=== PATIENT | female | born 1990 | race Asian ===

== ENCOUNTER 2017-05-14 18:46 | Emergency (ER) | payer OTHER ==
[2017-05-14 19:38] VITALS: BP 141/89
--- NOTE | 2017-05-14 22:17 | UC ---
chandni Quezada Timothy, scribed for Kacie Vaca DO on 05/14/17 at 1953 . Back Pain HPI - HPI Summary HPI Summary: Juanis Mathew is a 26 yo female presenting to [facility] with 6/10 left upper back pain radiating into her neck without any known trauma for the past 2 days. There are no aggravating or alleviating factors. Pt notes she is on ABx for UTI currently. She also notes she has the urge to cough as of this afternoon, and experienced some tingling last night. She denies any radiation of pain into her arm or shoulder. She denies fever, CP, SOB, N/V, sore throat, ear ache, rashes, numbness, or any other Sx. She denies any PMHx. Her LNMP was one week ago. - History of Current Complaint Chief Complaint: UCBackPain Stated Complaint: BACK AND NECK PAIN Time Seen by Provider: 05/14/17 19:47 Hx Obtained From: Patient Hx Last Menstrual Period: 1 WEEK AGO ?: No Onset/Duration: Sudden Onset, Lasting Days, Still Present Timing: Constant Severity Initially: Moderate Severity Currently: Moderate Pain Intensity: 6 Pain Scale Used: 0-10 Numeric Back Pain: Is Discrete @ - upper back, Radiates To - neck Character: Aching Aggravating: Nothing Alleviating: Nothing Associated Signs And Symptoms: Negative: Swelling, Redness, Bruising, Fever, Weakness, Numbness, Tingling, Abdominal Pain, Flank Pain - Allergies/Home Medications Allergies/Adverse Reactions: Allergies Allergy/AdvReac Type Severity Reaction Status Date / Time No Known Allergies Allergy Verified 05/14/17 19:38 Home Medications: Home Medications Naproxen TAB* [Naprosyn 250 mg TAB*] 500 mg PO PRN 05/14/17 [History] Sulfamethox/Trimethoprim DS* [Bactrim DS 800/160 TAB*] 1 tab PO BID 05/14/17 [ History Confirmed 05/14/17] PMH/Surg Hx/FS Hx/Imm Hx Previously Healthy: Yes Other History Of: Negative For: HIV, Hepatitis B, Hepatitis C, Anticoagulant Therapy - Surgical History Surgical History: None - Family History Known Family History: Positive: Cardiac Disease, Hypertension, Diabetes - Social History Occupation: Employed Full-time Alcohol Use: Occasionally Substance Use Type: None Smoking Status (MU): Never Smoked Tobacco Review of Systems Constitutional: Negative Skin: Negative Eyes: Negative ENT: Negative Respiratory: Cough - mild occ Cardiovascular: Negative Gastrointestinal: Negative Genitourinary: Negative Motor: Negative Neurovascular: Negative Musculoskeletal: Other: - upper back pain radiating to bas of the neckneck Neurological: Negative Psychological: Negative All Other Systems Reviewed And Are Negative: Yes Physical Exam Triage Information Reviewed: Yes Appearance: Well-Appearing, No Pain Distress, Well-Nourished Vital Signs: Initial Vital Signs Temp 98.7 F 05/14/17 19:35 Pulse 101 05/14/17 19:35 Resp 16 05/14/17 19:35 BP 141/89 05/14/17 19:35 Pulse Ox 100 05/14/17 19:35 Vital Signs Reviewed: Yes Eyes: Positive: Conjunctiva Clear. Negative: Discharge ENT: Positive: Hearing grossly normal. Negative: Muffled/hoarse voice Neck: Positive: Supple, Nontender Respiratory: Positive: Lungs clear, Normal breath sounds, No respiratory distress, No accessory muscle use Cardiovascular: Positive: RRR, No Murmur Musculoskeletal: Positive: Other: - paraspinal tenderness left upper thoracic, flattening of thoracic curve, head forward posture Neurological: Positive: Alert, Muscle Tone Normal, Other: - strength sensation and reflexes intact bl Psychological Exam: Normal Psychological: Positive: Age Appropriate Behavior Skin Exam: Normal Skin: Positive: Other - warm, dry, normal color. Negative: rashes Back Pain Course/Dx - Course Course Of Treatment: Kinga Mathew is a 26 yo female presenting to [facility] with 6/10 left upper back pain radaiitng into her neck for the past 2 days without any known trauma. Pt medication list reviewed this visit. Pt BP noted at 141/89. After clinical examination she will be discharged home with appropriate instructions and follow up. - Differential Dx/Diagnosis Differential Diagnosis/HQI/PQRI: Arthritis, Strain, Sprain Provider Diagnoses: upper back strain Discharge - Discharge Plan Condition: Stable Disposition: HOME Prescriptions: Cyclobenzaprine TAB* [Flexeril TAB*] 10 mg PO TID PRN #30 tab PRN Reason: Pain traMADol TAB* [Ultram*] 50 mg PO Q8H PRN #14 tab MDD 3 TABS PRN Reason: Pain Patient Education Materials: Thoracic Back Strain (ED) Referrals: Adonis Chapman DO [Doctor of Osteopathy] - 05/19/17 (Follow up as scheduled) Additional Instructions: YOU HAVE BEEN TAKING NAPROXEN FOR FOR LOW BACK PAIN SECONDARY TO UTI. YOU ARE NO LONGER HAVING THAT PAIN AND THE UTI APPEARS TO BE RESOLVING. SINCE THE NAPROXEN DOES NOT SEEM TO BE HELPING, YOU CAN STOP IT AND TRY THE FOLLOWING PAIN MEDS. MUSCLE RELAXERS: Muscle relaxing medications are usually prescribed for acute muscle spasm or injury to the neck and back. They are often combined with antiinflammatory pain medication for increased relief. You may stop the muscle relaxer when the pain and stiffness have improved. Start the medication again if spasms recur. Muscle relaxers may cause drowsiness, especially with the first dose. Do not operate machinery or drive while under the effects of the medication. Most muscle relaxers last up to 24 hours. Do not combine the medication with alcohol. ULTRAM (tramadol hydrochloride): Ultram is an excellent drug for pain relief. It is not a narcotic, but it works in a similar way. Ultram can take up to two hours for full effect. Although not addicting, Ultram is best avoided in patients with a history of drug abuse. Ultram should not be used with alcohol, sleeping pills, or narcotics. If you're prone to seizures, Ultram can make you more likely to have a seizure. Ultram can be hazardous when combined with MAO-inhibitor antidepressants (such as Nardil or Parnate). Be sure your doctor is aware of all medicines you are taking. Persons with severe liver or kidney disease should increase the time between doses of Ultram. Discuss this with your doctor if you're uncertain. Side effects of Ultram can include dizziness, nausea, constipation, sleepiness, and itching. (These side effects are also seen with narcotic pain medicines.) Please call your doctor if you have other disturbing effects. IF YOU DO NOT IMPROVE IN 1-2 WEEKS, YOU WANT TO REQUEST A REFERRAL TO PHYSICAL THERAPY FROM YOUR PCP. YOU WOULD BENEFIT FROM BODY WORK SUCH A CHIROPRACTIC, MASSAGE, ACCUPUNCTURE OR OSTEOPATHY. WE RECOMMEND THAT YOU FIND AN OSTEOPATHIC PHYSICIAN WITH EXPERTISE IN MYOFACIAL, LYMPHATIC, VISCERAL AND INTEROSSEOUS WORK Please follow up with your primary care physician regarding your visit to urgent care today. Return to urgent care or the emergency department with any new or worsening symptoms. The documentation as recorded by the chandni daniels Timothy accurately reflects the service I personally performed and the decisions made by , Kacie Vaca DO.
== END 2017-05-14 20:32 | disposition home or self-care (01) ==
LOC: UCEAST 18:46
DX: S29.012A Strain of muscle and tendon of back wall of thorax, initial encounter (principal); N39.0 Urinary tract infection, site not specified; Z79.2 Long term (current) use of antibiotics
CPT/HCPCS: 99212; G0463

== ENCOUNTER 2017-12-03 23:55 | Emergency (ER) | payer OTHER ==
--- OUTSIDE RECORDS SUMMARY | 2017-12-04 00:12 | XMS REPORT ---
:1990 External Reference #:[id number] Author Organization [facility] Address [address] [place] [address] Phone [phone] Care Team Providers Name Role Phone HCP given Primary Care Physician Unavailable Payers Type Date Identification Numbers Payment Provider Subscriber Commercial Effective: Policy Number: [id number] Pomco Kinga Mathew 2016 Expires: 2017 PayID: [id number] [address] [place] [address] Medigap Part B Effective: 2017 Policy Number: [id number] Umr/Pomco Kinga Mathew PayID: [id number] [address] [address] [place] [address] Problems Date Description Provider Status Onset: 05/26/2011 Dysfunctional uterine bleeding Abilio Hughes Active Onset: 11/23/2017 Tension-type headache Adonis Chapman D.O. Active Onset: 11/23/2017 Mixed hyperlipidemia Adonis Chapman D.O. Active Family History Date Family Member(s) Problem(s) Comments General Some FMHx (extended) of BR CA, pt does not know who exactly or their ages at onset Father Migraine with light sensitivity Father Allergies Father Asthma Father Obesity Father Diabetes, NOS Mother Migraine visual type Onset: (age 52 Mother Hyperthyroidism ab pos Years) Mother Hypertension First Brother ADHD First Brother Obesity Maternal Grandmother Hyperthyroidism at a young age, thyroidectomy in her 30's. 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 Abuse No history of abuse Hobbies Reading Cigarette Use 07/02/2015 Denies Cigarette Use ETOH Use Occassional Alcohol Smoking Non Smoker Exercise Type/Frequency Does aerobics daily zymba and pilates Sun Exposure moderate amount of sun exposure Sun Exposure Uses sunscreen Seat Belt/Car Seat always uses seat belt Bike Helmet Always Guns in Home No Smoke Alarms Yes smoke alarm Recent Travel There has not been recent travel abroad Currently Active 07/02/2015 Has never engaged in sexual activity Father's Occupation News Clipping Cutter Mother's Occupation Photogrammetrist [employer] Mill Inspector No Daycare Needed Allergies, Adverse Reactions, Alerts Date Description Reaction Status Severity Comments 05/29/2006 NKDA active Medications Medication Date Status Form Strength Qnty SIG Indications Ordering Provider Simvastatin 11/23 Active Tablets 20mg 90tab 1 [facility] Adonis, D.O. Magox 400 11/23 Active Tablets 400(241.3 180ta 2 tablets G44.209 [facility], mg) mg bs every night Adonis, at bedtime D.O. as directed Centrum Women 11/22 Active Tablets 1 po daily Flonase Allergy 05/19 Active Suspension 50mcg/Act 47.40 2 sprays J30.9 [facility], 0ml twice a day Adonis, until D.O. better. Fluocinonide 10/31 Active Ointment 0.05% Apply Topically To Hands Two Times A Day Previfem 08/29 Active Tablets 0.25-35mg 3pkts 1 ta b by Z30.011 -mcg mouth every A. day Omid Dawson Atorvastatin 09/09 Hx Tablets 20mg 90tab 1 tablets Sopchak, s by mouth Adonis, - daily for D.O. 11/23 of heart attack and stroke. Macrobid 06/01 Hx Capsules 100mg 14cap 1 cap bid x N39.0 Silcoff, s 7 days Anthony Elise M.D. 06/08 Cyclobenzaprine 05/14 Hx Tablets 10mg 1 tab by Unknown HCL mouth three - times a day 07/15 as needed for pain Tramadol HCL 05/14 Hx Tablets 50mg 1-2 by Unknown /2017 mouth every - 8 hours as 07/15 needed for pain Sulfamethoxazole 05/09 Hx Tablets 800-160mg 14tab 1 tab [facility]Trimethoprim s mouth twice EMMA Blank - a day x7 Naproxen 05/09 Hx Tablets 500mg 60tab 1 tab twice M54.5 Hekrosalina, /2016 s a day with EMMA Blank - food as 05/18 needed for pain Sprintec 28 10/06 Hx Tablets 0.25-35mg 3pkts 1 po qd V25.01 Silcocameron, -mcg Arik - M.D. 08/29 Fluconazole 06/05 Hx Tablets 150mg 2tabs 1 tab po q 110.5 Silcocameron, week then 1 Arik, - tab 8 days M.D. 05/23 Triamcinolone/[place]y 06/05 Hx Cream 057709-3. 60g Apply to 110.5 co, 1Unit/GM- affected Arik - % areas tid M.D. 06/16 for up to weeks Cephalexin 04/24 Hx Capsules 250mg 28cap 1 PO qid 680.9 s A. - Eunice, 05/01.D. /2006 Fluocinonide 04/24 Hx Cream 0.05% 15gm Apply To 680.9 Affected A. - Area tid Eunice, 04/29 For Five M.D. /2006 Days Ibuprofen 05/29 Hx Caplets 800mg 100ca 1 tid to 625.3 ps qid for A. - period edi, 06/16 M.D. Necon 00 Hx Tablets 0.5/0.75/ 3pkts 1 tab po qd 626.6 Silco, 1-35 Arik - mg-roseline M.D. 10/06 V25.01 Medications Administered in Office Medication Date Status Form Strength Qnty SIG Indications Ordering Provider TB Intradermal Administered Injection Ty Loza 009 Omid Dawson Immunizations CPT Code Status Date Vaccine Lot # [id number] Given 08/07/2017 Influenza Virus Vaccine, Quadrivalent, Split, Preservative Free 93540 Given 09/04/2016 Td Immunization [id number] 69248 Given 07/31/2016 Influenza Virus Vaccine, Quadrivalent, [place], [place] Use [address] Given 07/02/2015 Flu, Split Virus 3Yrs 31384 Given 12/10/2012 Hep A, Adult [id number] 31784 Given 06/16/2012 Hep A, Adult [id number] 82254 Given 10/16/2011 Flu, Split Virus 3Yrs [id number] 99944 Given 11/13/2008 Gardasil HPV vaccine [id number] 46919 Given 08/19/2008 Flu, Split Virus 3Yrs [id number] 33801 Given 06/26/2008 Gardasil HPV vaccine 28010 Given 04/25/2008 Menactra Menningitis Vaccine [id number] 11070 Given 04/25/2008 Gardasil HPV vaccine [id number] 06140 Given 05/29/2006 Varicella (Chicken Pox) Immunization [id number] 53913 Given 05/29/2006 Adacel or Boostrix, TDaP [id number] 90697 Given 01/29/2004 Td Immunization 47387 Given 03/28/1997 DTP Immunization 24257 Given 02/06/1997 Hep B Immunization, Ped/Adolescent To 11 Yrs 69316 Given 08/23/1996 Hep B Immunization, Ped/Adolescent To 11 Yrs 02028 Given 04/15/1996 Hep B Immunization, Ped/Adolescent To 11 Yrs 06500 Given 04/14/1996 Poliomyelitis Immunization 54104 Given 04/14/1996 MMR Virus Immunization 87002 Given 04/14/1996 DTP Immunization 91822 Given 03/28/1992 Hib 4 Dose, Acthib 79034 Given 03/28/1992 MMR Virus Immunization 95401 Given 03/28/1992 Poliomyelitis Immunization 79601 Given 06/29/1991 DTP Immunization 86012 Given 06/29/1991 Hib 4 Dose, Acthib 74316 Given 04/27/1991 Poliomyelitis Immunization 49519 Given 04/27/1991 DTP Immunization 41694 Given 04/27/1991 Hib 4 Dose, Acthib 82346 Given 02/23/1991 Poliomyelitis Immunization 58372 Given 02/23/1991 DTP Immunization 21774 Given 02/23/1991 Hib 4 Dose, Acthib Vital Signs Date Vital Result Comment 11/23/2017 BP Systolic 124 mmHg BP Diastolic 74 mmHg Weight 138.00 lb 09/07/2017 BP Systolic 120 mmHg BP Diastolic 80 mmHg Height 59.50 inches 4'11.50" Weight 135.00 lb BMI (Body Mass Index) 26.8 kg/m2 Last Menstrual Period [id number] 06/08/2017 Body Temperature 98.5 F 06/01/2017 BP Systolic 112 mmHg BP Diastolic 70 mmHg Body Temperature 98.2 F Weight 130.00 lb 05/19/2017 BP Systolic 122 mmHg BP Diastolic 64 mmHg Weight 130.00 lb 05/09/2017 BP Systolic 118 mmHg BP Diastolic 60 mmHg Weight 128.00 lb 04/10/2017 BP Systolic 120 mmHg BP Diastolic 58 mmHg Height 59.5 inches 4'11.50" Weight 133.00 lb BMI (Body Mass Index) 26.4 kg/m2 09/04/2016 BP Systolic 106 mmHg BP Diastolic 82 mmHg Height 59.5 inches 4'11.50" Weight 127.00 lb BMI (Body Mass Index) 25.2 kg/m2 07/02/2015 BP Systolic 120 mmHg BP Diastolic 82 mmHg Heart Rate 80 /min Height 59.5 inches 4'11.50" Weight 121.00 lb BMI (Body Mass Index) 24.0 kg/m2 06/29/2014 BP Systolic 136 mmHg k BP Diastolic 89 mmHg k Heart Rate 70 /min Height 59.5 inches 4'11.50" Weight 129.00 lb BMI (Body Mass Index) 25.6 kg/m2 Last Menstrual Period [id number] 06/22/2013 BP Systolic 119 mmHg BP Diastolic 81 mmHg Heart Rate 90 /min Height 59.50 inches 4'11.50" Weight 125.00 lb BMI (Body Mass Index) 24.8 kg/m2 Last Menstrual Period [id number] 10/06/2012 BP Systolic 134 mmHg BP Diastolic 86 mmHg BP Systolic Recheck 126 mmHg BP Diastolic Recheck 96 mmHg Heart Rate 93 /min Weight 123.00 lb Last Menstrual Period 0 06/16/2012 BP Systolic 126 mmHg BP Diastolic 92 mmHg BP Systolic Recheck 122 mmHg BP Diastolic Recheck 84 mmHg Heart Rate 111 /min Height 59.50 inches 4'11.50" Weight 124.00 lb BMI (Body Mass Index) 24.6 kg/m2 Last Menstrual Period [id number] 05/26/2011 BP Systolic 130 mmHg BP Diastolic 90 mmHg BP Systolic Recheck 126 mmHg BP Diastolic Recheck 91 mmHg Height 59.50 inches 4'11.50" Weight 132.00 lb BMI (Body Mass Index) 26.2 kg/m2 06/05/2010 BP Systolic 146 mmHg BP Diastolic 86 mmHg BP Systolic Recheck 118 mmHg Pulse 101 BP Diastolic Recheck 93 mmHg Pulse 101 Heart Rate 93 /min Height 59.5 inches 4'11.50" Weight 133.00 lb BMI (Body Mass Index) 26.4 kg/m2 05/14/2009 BP Systolic 110 mmHg BP Diastolic 84 mmHg Weight 139.00 lb Last Menstrual Period [id number] 04/27/2009 BP Systolic 122 mmHg BP Diastolic 88 mmHg Heart Rate 80 /min Respiratory Rate 16 /min Height 59.5 inches 4'11.50" Weight 136.00 lb BMI (Body Mass Index) 27.0 kg/m2 06/26/2008 BP Systolic 130 mmHg BP Diastolic 90 mmHg BP Systolic Recheck 120 mmHg BP Diastolic Recheck 80 mmHg Heart Rate 70 /min Respiratory Rate 16 /min Height 58.9 inches 4'10.90" Weight 140.00 lb BMI (Body Mass Index) 28.4 kg/m2 Last Menstrual Period 0 04/25/2008 BP Systolic 130 mmHg BP Diastolic 90 mmHg BP Systolic Recheck 122 mmHg BP Diastolic Recheck 84 mmHg Heart Rate 80 /min Respiratory Rate 16 /min Height 59 inches 4'11" Weight 135.00 lb BMI (Body Mass Index) 27.3 kg/m2 04/24/2007 BP Systolic 122 mmHg BP Diastolic 80 mmHg Height 59 inches 4'11" Weight 129.00 lb BMI (Body Mass Index) 26.1 kg/m2 05/29/2006 BP Systolic 96 mmHg BP Diastolic 74 mmHg Heart Rate 80 /min Respiratory Rate 16 /min Height 58.75 inches 4'10.75" Weight 121.00 lb BMI (Body Mass Index) 24.6 kg/m2 05/29/2004 BP Systolic 110 mmHg BP Diastolic 70 mmHg Height 58.3 inches 4'10.30" Weight 113.00 lb BMI (Body Mass Index) 23.4 kg/m2 Results Test Date Test Result H/L Range Note Lipid Profile (Trig/Chol/HDL) 11/19/2017 Triglycerides 258 mg/dL 1 Cholesterol 175 mg/dL 2 HDL Cholesterol 72.1 mg/dL 3 LDL Cholesterol 51 mg/dL 4 Comp Metabolic Panel 11/19/2017 Sodium 136 mmol/L 133-145 Potassium 4.6 mmol/L 3.5-5.0 Chloride 101 mmol/L 101-111 Co2 Carbon Dioxide 26 mmol/L 22-32 Anion Gap 9 mmol/L 2-11 Glucose 82 mg/dL 70-100 Blood Urea Nitrogen 7 mg/dL 6-24 Creatinine 0.61 mg/dL 0.51-0.95 BUN/Creatinine Ratio 11.5 8-20 Calcium 9.4 mg/dL 8.6-10.3 Total Protein 7.1 g/dL 6.4-8.9 Albumin 4.1 g/dL 3.2-5.2 Globulin 3.0 g/dL 2-4 Albumin/Globulin Ratio 1.4 1-3 Total Bilirubin 0.50 mg/dL 0.2-1.0 Alkaline Phosphatase 70 U/L 34-104 Alt 151 U/L High 7-52 Ast 96 U/L High 13-39 Egfr Non- 118.6 >60 Egfr 152.5 >60 5 Laboratory test finding 09/08/2017 LDL Cholesterol Direct 117 mg/dL 6 Lipid Profile (Trig/Chol/HDL) 09/08/2017 Triglycerides 467 mg/dL 7 Cholesterol 259 mg/dL 8 HDL Cholesterol 71.8 mg/dL 9 LDL Cholesterol (SEE NOTE) mg/dL 10 Basic Metabolic Panel 09/08/2017 Sodium 134 mmol/L 133-145 Potassium 4.2 mmol/L 3.5-5.0 Chloride 97 mmol/L Low 101-111 Co2 Carbon Dioxide 26 mmol/L 22-32 Anion Gap 11 mmol/L 2-11 Glucose 82 mg/dL 70-100 Blood Urea Nitrogen 10 mg/dL 6-24 Creatinine 0.56 mg/dL 0.51-0.95 BUN/Creatinine Ratio 17.9 8-20 Calcium 9.9 mg/dL 8.6-10.3 Egfr Non- 130.9 >60 Egfr 168.3 >60 11 HIV 1/2 AB Evaluation 09/08/2017 HIV 1 2 Antibody Nonreactive Nonreactive 12 Urine Micro Inhouse 09/07/2017 Ua WBC - 13 Ua RBC - 13 Ua Casts - 13 Ua Epi - 13 Ua Other - 13 Ua Glucose - 13 Ua Bilirubin - 13 Ua Ketones - 13 Ua Specific Arnegard 1.005 13 Ua Blood - 13 Ua PH 6.0 13 Ua Protein - 13 Ua Urobilinogen - 13 Ua Nitrite - 13 Ua Leukocytes - 13 Culture Urine Inhouse 09/07/2017 Colonies no growth 13 Ua Inhouse 06/08/2017 Ua Glucose - 14 Ua Bilirubin - 14 Ua Ketones - 14 Ua Specific Arnegard 1.010 14 Ua Blood lg 14 Ua PH 6.0 14 Ua Protein - 14 Ua Urobilinogen - 14 Ua Nitrite - 14 Ua Leukocytes - 14 Culture Urine Inhouse 06/08/2017 Colonies 07/21 14 Order 06/08/2017 Ua inhouse <pending> 15 Urine Culture, inhouse 07/21 15 Urine Micro Inhouse 06/01/2017 Ua WBC 7 16 Ua RBC 3 16 Ua Casts - 16 Ua Epi many 16 Ua Other - 16 Ua Glucose - 16 Ua Bilirubin - 16 Ua Ketones - 16 Ua Specific Arnegard 1.010 16 Ua Blood - 16 Ua PH 6.0 16 Ua Protein - 16 Ua Urobilinogen - 16 Ua Nitrite - 16 Ua Leukocytes sm 16 Laboratory test finding 06/01/2017 Urine Culture And SEE RESULT BELOW 17 Sensitivities Culture Urine Inhouse 05/09/2017 Colonies 07/20 18 Ua Inhouse 05/09/2017 Ua Glucose - 18 Ua Bilirubin - 18 Ua Ketones - 18 Ua Specific Arnegard 1.005 18 Ua Blood 3+ (menses) 18 Ua PH 5.0 18 Ua Protein - 18 Ua Urobilinogen - 18 Ua Nitrite - 18 Ua Leukocytes 2+ 18 Laboratory test finding 04/13/2017 TSH (Thyroid Stim Horm) 1.71 mcIU/mL 0.34-5.60 Comp Metabolic Panel 04/13/2017 Sodium 137 mmol/L 133-145 Potassium 4.4 mmol/L 3.5-5.0 Chloride 102 mmol/L 101-111 Co2 Carbon Dioxide 26 mmol/L 22-32 Anion Gap 9 mmol/L 2-11 Glucose 86 mg/dL 70-100 Blood Urea Nitrogen 10 mg/dL 6-24 Creatinine 0.66 mg/dL 0.51-0.95 BUN/Creatinine Ratio 15.2 8-20 Calcium 9.9 mg/dL 8.6-10.3 Total Protein 7.9 g/dL 6.4-8.9 Albumin 4.7 g/dL 3.2-5.2 Globulin 3.2 g/dL 2-4 Albumin/Globulin Ratio 1.5 1-3 Total Bilirubin 0.40 mg/dL 0.2-1.0 Alkaline Phosphatase 60 U/L 34-104 Alt 21 U/L 7-52 Ast 18 U/L 13-39 Egfr Non- 108.3 >60 Egfr 139.2 >60 19 CBC Auto Diff 04/13/2017 White Blood Count 8.0 10^3/uL 3.5-10.8 Red Blood Count 5.32 10^6/uL 4.0-5.4 Hemoglobin 15.9 g/dL 12.0-16.0 Hematocrit 46 % 35-47 Mean Corpuscular Volume 87 fL 80-97 Mean Corpuscular Hemoglobin 30 pg 27-31 Mean Corpuscular HGB Conc 34 g/dL 31-36 Red Cell Distribution Width 13 % 10.5-15 Platelet Count 308 10^3/uL 150-450 Mean Platelet Volume 7 um3 Low 7.4-10.4 Abs Neutrophils 5.1 10^3/uL 1.5-7.7 Abs Lymphocytes 1.9 10^3/uL 1.0-4.8 Abs Monocytes 0.5 10^3/uL 0-0.8 Abs Eosinophils 0.4 10^3/uL 0-0.6 Abs Basophils 0.1 10^3/uL 0-0.2 Abs Nucleated RBC 0.01 10^3/uL Granulocyte % 64.2 % 38-83 Lymphocyte % 23.6 % Low 25-47 Monocyte % 5.9 % 1-9 Eosinophil % 5.4 % 0-6 Basophil % 0.9 % 0-2 Nucleated Red Blood Cells % 0.1 Thyroid Autoantibodies Profile 04/13/2017 Thyroperoxidase AB 0.27 IU/mL & lt;9 Thyroglobulin AB <1.8 IU/mL <4.0 20 Laboratory test finding 09/04/2016 Cytology SEE RESULT BELOW 21 Laboratory test finding 06/22/2013 Hemoglobin 12.0 Glucose Quantitative 107 Laboratory test finding 06/22/2013 TSH (Thyroid Stimulating 2.32 miu/mL 0.34-5.60 Horm) Ua Inhouse 06/22/2013 Ua Glucose - Ua Bilirubin - Ua Ketones - Ua Specific Arnegard 1.015 Ua Blood - Ua PH 5.0 Ua Protein - Ua Urobilinogen - Ua Nitrite - Ua Leukocytes - Laboratory test finding 10/06/2012 Glucose Quantitative 84 Ua Inhouse 10/06/2012 Ua Glucose - Ua Bilirubin - Ua Ketones - Ua Specific Arnegard 1.020 Ua Blood - Ua PH 5.0 Ua Protein - Ua Urobilinogen - Ua Nitrite - Ua Leukocytes - Laboratory test finding 06/16/2012 TSH 1.34 MIU/ML 0.34-5.60 CBC Auto Diff 06/16/2012 White Blood Count 7.2 CUMM 4.8-10.8 Red Cell Count 4.98 CUMM 4.2-5.4 Hemoglobin 15.3 g/dL 12.0-16.0 Hematocrit 43 % 35-47 Mean Corpuscular Volume 87 um3 79-97 Mean Corpuscular Hemoglob 31 pg 27-31 Mean Corpuscular HGB Cone 35 g/dL 32-36 Redcell Distribution WDTH 12 % 10.5-15 Platelet Count 356 CUMM 150-450 Mean Platelet Volume 7.4 um3 7.4-10.4 Gran % 59.0 % 38-83 Lymph % 28.8 % 20-45 Mononuclear % 8.7 % 1-9 Eosinophil % 3.1 % 0-6 Basophil % 0.4 % 0-2 Abs Lymphs 2.1 1.0-4.8 Abs Mononuclear 0.6 0-0.8 Absolute Neutrophil Count 4.3 1.5-7.7 Abs Eosinophils 0.2 0-0.6 Abs Basophils 0 0-0.2 Laboratory test finding 04/27/2009 Prolactin 8.71 NG/ML 1.0-25.0 TSH 2.27 MIU/ML 0.34-5.60 Comp Metabolic Panel 04/27/2009 Sodium 137 mmol/L 135-145 Potassium 3.9 mmol/L 3.5-5.0 Chloride 102 mmol/L 101-111 Co2 (Carbon Dioxide) 27.0 mmol/L 22-32 Anion Gap 8.0 mmol/L 2-11 22 Glucose 111 mg/dL High 70-100 23 BUN 9 mg/dL 6-24 Creatinine 0.60 mg/dL 0.50-1.40 One Over Creatinine 1.60 BUN/Creatinine Ratio 15.0 8-20 Calcium 9.9 mg/dL 8.1-9.9 24 Total Protein 7.1 GM/DL 6.2-8.1 Albumin 4.6 GM/DL 3.6-5.4 Globulin 2.5 GM/DL 2-4 Albumin/Globulin Ratio 1.8 1-3 Bilirubin Total 0.9 mg/dL 0.4-1.5 25 Alkaline Phosphatase 64 U/L 40-122 Alt (SGPT) 77 U/L High 14-54 Ast (Sgot) 46 U/L High 12-42 eGFR Non- 138.4 > 60 eGFR 167.5 > 60 26 CBC With Electronic Diff 04/27/2009 White Blood Count 6.5 CUMM 4.8-10.8 Red Cell Count 5.19 CUMM 4.2-5.4 Hemoglobin 15.1 g/dL 12.0-16.0 Hematocrit 44 % 35-47 Mean Corpuscular Volume 84 um3 79-97 Mean Corpuscular Hemoglob 29 pg 27-31 Mean Corpuscular HGB Cone 35 g/dL 32-36 Redcell Distribution WDTH 13 % 10.5-15 Platelet Count 299 CUMM 150-450 Mean Platelet Volume 7.2 um3 Low 7.4-10.4 Gran % 57.3 % 38-83 Lymph % 31.6 % 25-47 Mononuclear % 6.6 % 1-9 Eosinophil % 4.0 % 0-6 Basophil % 0.5 % 0-2 Abs Lymphs 2.0 1.0-4.8 Abs Mononuclear 0.4 0-0.8 Absolute Neutrophil Count 3.7 1.5-7.7 Abs Eosinophils 0.3 0-0.6 Abs Basophils 0 0-0.2 Laboratory test finding 04/27/2009 FSH 6.74 MIU/ML 27 Lutenizing Hormone 10.28 MIU/ML 28 Urine Micro Inhouse 04/27/2009 Urine Microscopic Inhouse many epi Ua Inhouse 04/27/2009 Ua Glucose - Ua Bilirubin - Ua Ketones - Ua Specific Arnegard 1.020 Ua Blood - Ua PH 5.0 Ua Protein - Ua Urobilinogen - Ua Nitrite - Ua Leukocytes - Ua Inhouse 06/01/2006 Ua Glucose NEG Ua Bilirubin NEG Ua Ketones NEG Ua Specific Arnegard 1.015 Ua Blood NEG Ua PH 5.0 Ua Protein NEG Ua Urobilinogen NEG Ua Nitrite NEG Ua Leukocytes NEG Laboratory test finding 06/01/2006 Hemoglobin 13.9 Urine Microscopic Inhouse OCC EPI CBC With Electronic Diff 05/29/2004 White Blood Count 8.5 CUMM 4.8-10.8 Abs Basophils 0.1 0-0.2 Abs Eosinophils 0.4 0-0.6 Abs Grans 4.3 1.5-7.7 Abs Lymphs 3.1 1.0-4.8 Abs Mononuclear 0.6 0-0.8 Basophil % 0.7 % 0-2 Hematocrit 45 % 35-45 Hemoglobin 15.6 g/dL High 11.5-15.5 Eosinophil % 5.2 % 0-6 Gran % 50.7 % 38-83 Lymph % 36.7 % 20-45 Mean Corpuscular HGB Cone 35 g/dL 32-36 Mean Corpuscular Hemoglob 29 pg 27-31 Mean Corpuscular Volume 85 um3 79-97 Mean Platelet Volume 8.2 um3 7.4-10.4 Mononuclear % 6.7 % 1-9 Platelet Count 336 CUMM 150-450 Red Cell Count 5.32 CUMM High 4.0-5.2 Redcell Distribution WDTH 13 % 10.5-15 Laboratory test finding 05/29/2004 Transferrin 282 mg/dL 200-400 29 Laboratory test finding 05/29/2004 Ferritin 36 NG/ML 11.0-307 Iron & Iron Binding Capacity 05/29/2004 Iron Total 111 g/dL 28-170 Total Iron Binding Capacity 415 g/dL 250-450 % Iron Saturation 27 % 15-55 Unsaturated Iron Binding 304 g/dL Comp Metabolic Panel 05/29/2004 Anion Gap 7.0 mmol/L 2-11 30 Albumin/Globulin Ratio 1.4 1-3 Albumin 4.6 GM/DL 3.6-5.4 Alkaline Phosphatase 117 U/L Low 130-390 Alt (SGPT) 22 U/L 14-54 Ast (Sgot) 22 U/L 12-42 BUN 8 mg/dL 6-24 Calcium 10.3 mg/dL High 8.7-10.2 Chloride 104 mmol/L 101-111 Co2 (Carbon Dioxide) 27.0 mmol/L 22-32 Creatinine 0.7 mg/dL 0.5-1.4 Globulin 3.4 GM/DL 2-4 Glucose 92 mg/dL 70-105 Potassium 4.5 mmol/L 3.6-5.2 Sodium 138 mmol/L 135-145 Bilirubin Total 0.7 mg/dL 0.4-1.5 Total Protein 8.0 GM/DL 6.2-8.1 BUN/Creatinine Ratio 11.4 8-20 1 Desirable: <150 Borderline High: 150-199 High: 200-499 Very High: >500 2 Desirable: <200 Borderline High: 200-239 High: >239 3 Low: <40 Desirable: 40-60 High: >60 4 Desirable: <100 Near Optimal: 100-129 Borderline High: 130-159 High: 160-189 Very High: >189 5 Because ethnic data is not always readily available, this report includes an eGFR for both -Americans and non- Americans. The National Kidney Disease Education Program (NKDEP) does not endorse the use of the MDRD equation for patients that are not between the ages of 18 and 70, are , have extremes of body size, muscle mass, or nutritional status, or are non- or non-. According to the National Kidney Foundation, irrespective of diagnosis, the stage of the disease is based on the level of kidney function: Stage Description GFR(mL/min/1.73 m(2)) 1 Kidney damage with normal or decreased GFR 90 2 Kidney damage with mild decrease in GFR 60-89 3 Moderate decrease in GFR 30-59 4 Severe decrease in GFR 15-29 5 Kidney failure <15 (or dialysis) 6 Desirable: <100 Near Optimal: 100-129 Borderline High: 130-159 High: 160-189 Very High: >189 7 Desirable: <150 Borderline High: 150-199 High: 200-499 Very High: >500 8 Desirable: <200 Borderline High: 200-239 High: >239 9 Low: <40 Desirable: 40-60 High: >60 10 Unable to calculate LDL as triglyceride is > 400 11 Because ethnic data is not always readily available, this report includes an eGFR for both -Americans and non- Americans. The National Kidney Disease Education Program (NKDEP) does not endorse the use of the MDRD equation for patients that are not between the ages of 18 and 70, are , have extremes of body size, muscle mass, or nutritional status, or are non- or non-. According to the National Kidney Foundation, irrespective of diagnosis, the stage of the disease is based on the level of kidney function: Stage Description GFR(mL/min/1.73 m(2)) 1 Kidney damage with normal or decreased GFR 90 2 Kidney damage with mild decrease in GFR 60-89 3 Moderate decrease in GFR 30-59 4 Severe decrease in GFR 15-29 5 Kidney failure <15 (or dialysis) 12 It is recognized that currently available assays for the detection of antibodies to HIV-1 and/or HIV-2 may not detect all infected individuals. HIV antibodies may be undetectable in some stages of the infection and in some clinical conditions. The performance of this assay has not been established for populations of infants or children. Assayed by Chemiluminescence Microparticle Immunoassay on the Siemens Advia Centaur CP. Values obtained with different methods or kits cannot be used interchangeably.The diagnostic specificity of the [employer] Centaur 1/O/2 Enhanced assay in the low risk population was 99.90% (6052/6058) with a 95% confidence interval of 99.78 to 99.96%. 13 void, clear, yellow 14 color yellow, pt having menses now. 15 negative for everything but blood, Lg, but pt currently in middle of menstrual period 16 void, clear, light yellow 17 SEE RESULT BELOW Name: KINGA MATHEW : [address]: Ronda CARTER Acct: [id number] Unit: [id number] AGE: 26 Location: [facility] Re06/01/17 SEX: F Status: REG REF SPEC: [id number] CHASIDY: 06/01/[address]: Ronda CARTER REQ: [id number] RECD: 06/01/17 STATUS: COMP _ SOURCE: URINE SPDESC: ORDERED: Urine Culture COMMENTS: [id number] Procedure Result Reported Site Urine Culture Final 06/03/17- 08 ML No Growth (<1,000 CFU/mL) * ML - MAIN LAB (PSC1) . END OF REPORT * ML=Testing performed at Main Lab DEPARTMENT OF PATHOLOGY, [address] [place] [address] Bennie Davila M.D. Director [facility] # [id number] 18 void, hazy, pink (menses) 19 Because ethnic data is not always readily available, this report includes an eGFR for both -Americans and non- Americans. The National Kidney Disease Education Program (NKDEP) does not endorse the use of the MDRD equation for patients that are not between the ages of 18 and 70, are , have extremes of body size, muscle mass, or nutritional status, or are non- or non-. According to the National Kidney Foundation, irrespective of diagnosis, the stage of the disease is based on the level of kidney function: Stage Description GFR(mL/min/1.73 m(2)) 1 Kidney damage with normal or decreased GFR 90 2 Kidney damage with mild decrease in GFR 60-89 3 Moderate decrease in GFR 30-59 4 Severe decrease in GFR 15-29 5 Kidney failure <15 (or dialysis) 20 ADDITIONAL INFORMATION The thyroglobulin antibody testing method is an immunoenzymatic assay manufactured by [employer]. and performed on the [employer] DXI 800. Values obtained from different assay methods or kits may be different and cannot be used interchangeably. The results cannot be interpreted as absolute evidence for the presence or absence of malignant disease. Test Performed by: [address] [address] 21 SEE RESULT BELOW Name: ZACHKINGA : [address]: Ty Dawson MD Acct: [id number] Unit: [id number] AGE: 25 Location: [facility] Re09/04/16 SEX: M Status: REG REF SPEC: [id number] CHASIDY: 09/04/[address] [facility] [address]: Ty Dawson MD REQ: [id number] RECD: 09/05/16 STATUS: SOUT _ ORDERED: IMAGE ANALYSIS COMMENTS: [id number] FINAL DIAGNOSIS Negative for Intraepithelial lesion or Malignancy A. Ectocervical/Endocervical Specimen Adequacy: Satisfactory of evaluation Transformation zone component identified Patient Information: HPV: Thin Layer Pap Test w/reflex to high risk HPV RNA testing when ASCUS Actual Specimen Date: 09/04/16 Last Menstrual Date: 08/29/16 ?: N Post Menopausal?: N Hysterectomy?: N Signed (signature on file) Hamzah HydeND(ASCP) 09/08 2501 This Pap test was evaluated with the assistance of the AlgEvolve Test Imaging System. Due to cytologic findings at the sprinkler fitter apprentice microscope, comprehensive manual rescreening by a De Ionizer Operator may be required. The Pap Smear is a screening test designed to aid in the detection of premalignant and malignant conditions of the uterine cervix. It is not a diagnostic procedure and should not be used as the sole means of detecting cervical cancer. Both false- positive and false- negative reports do occur. Depending on your risk status, a Pap smear should be obtained and evaluated every 1-3 years. END OF REPORT * ML=Testing performed at Main Lab DEPARTMENT OF PATHOLOGY, [address] [place] [address] Bennie Davila M.D. Director [facility] # [id number] 22 Anion gap measurement may be of limited value in the presence of any alkalosis, especially in a combined acid base disorder. . 23 Note change in reference range as of 06/08/08. The change was based on recommendations from the [place] [employer]. 24 Please note change in reference range effective 08 . 25 A metabolite of Naproxen, O-desmethylnaproxen, has been shown to interfere with the Jendrassik-Millie method for measuring total bilirubin. Samples from patients who have taken Naproxen have shown spurious elevation in total bilirubin levels. 26 Because ethnic data is not always readily available, this report includes an eGFR for both -Americans and non- Americans. The National Kidney Disease Education Program (NKDEP) does not endorse the use of the MDRD equation for patients that are not between the ages of 18 and 70, are , have extremes of body size, muscle mass, or nutritional status, or are non- or non-. According to the National Kidney Foundation, irrespective of diagnosis, the stage of the disease is based on the level of kidney function: Stage Description GFR(mL/min/1.73 m(2)) 1 Kidney damage with normal or decreased GFR 90 2 Kidney damage with mild decrease in GFR 60-89 3 Moderate decrease in GFR 30-59 4 Severe decrease in GFR 15-29 5 Kidney failure <15 (or dialysis) 27 NORMAL RANGE MALES 1 - 20 NORMALLY MENSTRUATING FEMALES - Follicular Phase 3 - 9 - Mid-Cycle Peak 4 - 23 - Luteal Phase 1 - 6 POSTMENOPAUSAL FEMALES 16 - 114 . 28 NORMAL RANGE MALES 2 - 12 NORMALLY MENSTRUATING FEMALES - Follicular Phase 1 - 18 - Mid-Cycle Peak 24 - 105 - Luteal Phase 0.6 - 20 POSTMENOPAUSAL FEMALES 15 - 62 . 29 TEST PERFORMED BY: [employer] [address] [place] [id number] [facility] #[id number] 30 Anion gap measurement may be of limited value in the presence of any alkalosis, especially in a combined acid base disorder. . Procedures Date CPT Code Description Status 05/19/2017 14078 Omt 3 To 4 Body Regions Involved Completed 04/27/2009 58468 Visual Acuity Screening Test Completed Encounters Type Date Location Provider CPT E/M Dx Office Visit 09/07/2017 9:15a Main Office Adonis Chapman D.O. 19498 R30.0 Z00.00 Z71.89 Office Visit 06/08/2017 4:40p Main Office Abilio Hughes 98469 R30.0 N76.0 Office Visit 06/01/2017 1:40p Main Office Abilio Hughes 27435 N39.0 M54.5 Office Visit 05/19/2017 11:15a Main Office Adonis Chapman D.O. 99246 J30.9 M99.02 M99.01 M99.08 M99.00 M54.2 J02.9 Office Visit 05/09/2017 9:30a [place] [address] N39.0 M54.5 Office Visit 04/10/2017 4:30p Main Office Adonis Chapman D.O. 43537 J37.0 Office Visit 09/04/2016 3:15p Main Office Ty Dawson M.D. 43539 Z01.419 Z71.89 Z23 Z41.8 Office Visit 07/02/2015 9:15a Main Office Ty Dawson M.D. 48706 Z30.011 Z13.220 Z01.419 Office Visit 06/29/2014 9:15a Main Office Ty Dawson M.D. 49264 784.0 477.9 V25.01 796.2 V70.0 V76.10 V76.2 Office Visit 06/22/2013 9:40a Main Office Ronda Martinez P.A. 45258 V70.0 790.6 V77.0 V25.9 V78.1 V72.31 Office Visit 10/06/2012 10:20a Main Office Ronda Martinez P.A. 13594 V25.01 796.2 790.6 Office Visit 06/16/2012 9:40a Main Office Ronda Martinez P.A. 79858 V70.0 V72.31 V76.10 V77.0 V05.3 V07.2 Office Visit 05/26/2011 9:40a Main Office Ronda Martinez P.A. 45637 V25.01 796.2 Office Visit 06/05/2010 1:00p Main Office Shasta Hughes.A. 88187 110.5 626.6 796.2 Office Visit 05/14/2009 1:30p Main Office Ty Dawson M.D. 74316 626.6 V72.31 Office Visit 04/27/2009 9:05a Main Office Ty Dawson M.D. 55250 V70.0 626.6 V74.1 V72.0 Office Visit 06/26/2008 3:25p Main Office Ty Dawson M.D. 55133 796.2 V05.8 v05.8 V07.2 v07.2 Office Visit 04/25/2008 2:10p Main Office Ty Dawson M.D. 40686 V20.2 796.2 V05.8 V07.2 Office Visit 04/24/2007 9:00a Main Office Ty Dawson M.D. 12749 680.9 Office Visit 05/29/2006 1:30p Main Office Ty Dawson M.D. 44145 625.3 784.0 V20.2 V05.4 V07.2 V06.1 V81.6 V78.0 Office Visit 05/29/2004 11:20a Main Office Stacey Nguyen, N.P. 52413 564.00 V20.2 V78.0 V81.6 Office Visit 01/29/2004 4:00p Main Office Ty Dawson M.D. 73269 V58.3 V06.5 873.8 Office Visit 05/16/2003 4:00p Main Office Stacey Nguyen, N.P. 26323 V20.2 564.00 Plan of Care Future Appointment(s):09/13/2018 9:15 am - Adonis Chapman D.O. at Main Oxupjv9011/23/2017 - Adonis Chapman D.O.E78.2 Mixed hyperlipidemiaFollow up: reduce Carbs: potatoes, wheat, corn, rice, sugar 3 months reheck lweynggeitqV06.209 Tension-type headache, unspecified, not intractableNew Medication:Magox 400 400(241.3 mg) mg
[2017-12-04] MEDS: diPHENhydraMINE PO* 25 MG PO ONE (00:34)
--- NOTE | 2017-12-04 01:09 | ED ---
Dat Quezada Stephanie, scribed for Kush العلي MD on 12/04/17 at 0103 . Skin Complaint - HPI Summary HPI Summary: The pt is a 26 y/o F presenting to the ED with c/o possible adverse side effects to a new medication. At 22:00, the pt took 20 mg of Simvastatin. Symptoms include erythema over the face, facial itching, dry mouth and increased HR. She denies full-body rash. - History of Current Complaint Chief Complaint: EDAllergicReaction Time Seen by Provider: 12/04/17 00:18 Stated Complaint: POSSIBLE ALLERGIC REACTION TO NEW MEDICATION Hx Obtained From: Patient Hx Last Menstrual Period: 1 WEEK AGO Onset/Duration: Started Hours Ago - 3, Still Present Timing: Constant Current Severity: None Pain Intensity: 0 Pain Scale Used: 0-10 Numeric Skin Location: Face Aggravating Symptom(s): Other: - Simvastatin Alleviating Symptom(s): Nothing - Allergy/Home Medications Allergies/Adverse Reactions: Allergies Allergy/AdvReac Type Severity Reaction Status Date / Time No Known Allergies Allergy Verified 12/04/17 00:05 PMH/Surg Hx/FS Hx/Imm Hx Endocrine/Hematology History: Denies: Hx Anticoagulant Therapy, Hx Diabetes, Hx Thyroid Disease Cardiovascular History: Denies: Hx Congestive Heart Failure, Hx Deep Vein Thrombosis, Hx Hypertension , Hx Myocardial Infarction, Hx Pacemaker/ICD Respiratory History: Denies: Hx Asthma, Hx Chronic Obstructive Pulmonary Disease (COPD), Hx Lung Cancer, Hx Pneumonia, Hx Pulmonary Embolism GI History: Denies: Hx Gall Bladder Disease, Hx Gastrointestinal Bleed, Hx Ulcer, Hx Urosepsis History: Denies: Hx Kidney Stones, Hx Renal Disease Neurological History: Denies: Hx Dementia, Hx Migraine, Hx Seizures, Hx Transient Ischemic Attacks (TIA) Psychiatric History: Denies: Hx Anxiety, Hx Depression, Hx Schizophrenia, Hx Bipolar Disorder - Surgical History Surgery Procedure, Year, and Place: NONE Infectious Disease History: No Infectious Disease History: Denies: History Other Infectious Disease, Traveled Outside the [place] in Last 30 Days - Family History Known Family History: Positive: Cardiac Disease, Hypertension, Diabetes - Social History Occupation: Unemployed Lives: Alone Alcohol Use: Occasionally Substance Use Type: Reports: None Smoking Status (MU): Never Smoked Tobacco Review of Systems Negative: Fever Positive: Other - dry mouth Positive: Other - increased HR Positive: Other - erythema over the face, facial itching. Negative: Rash All Other Systems Reviewed And Are Negative: Yes Physical Exam - Summary Physical Exam Summary: VITAL SIGNS: Reviewed. GENERAL: Patient is a well-developed and nourished FEMALE who is lying comfortable in the stretcher. Patient is not in any acute respiratory distress. HEAD AND FACE: No signs of trauma. No ecchymosis, hematomas or skull depressions. No sinus tenderness. EYES: PERRLA, EOMI x 2, No injected conjunctiva, no nystagmus. EARS: Hearing grossly intact. Ear canals and tympanic membranes are within normal limits. MOUTH: Oropharynx within normal limits. NECK: Supple, trachea is midline, no adenopathy, no JVD, no carotid bruit, no c- spine tenderness, neck with full ROM. CHEST: Symmetric, no tenderness at palpation LUNGS: Clear to auscultation bilaterally. No wheezing or crackles. CVS: Regular rate and rhythm, S1 and S2 present, no murmurs or gallops appreciated. ABDOMEN: Soft, non-tender. No signs of distention. No rebound no guarding, and no masses palpated. Bowel sounds are normal. EXTREMITIES: FROM in all major joints, no edema, no cyanosis or clubbing. NEURO: Alert and oriented x 3. No acute neurological deficits. Speech is normal and follows commands. SKIN: Dry and warm, mild erythema over the face Triage Information Reviewed: Yes Vital Signs On Initial Exam: Initial Vitals Temp Pulse Resp BP Pulse Ox 98.5 F 98 16 145/107 99 12/04/17 00:02 12/04/17 00:02 12/04/17 00:02 12/04/17 00:02 12/04/17 00:02 Vital Signs Reviewed: Yes Diagnostics - Vital Signs Vital Signs Temp Pulse Resp BP Pulse Ox 12/04/17 00:30 96 128/93 99 12/04/17 00:28 100 127/92 99 12/04/17 00:27 99 98 12/04/17 00:14 100 98 12/04/17 00:02 98.5 F 98 16 145/107 99 - Laboratory Lab Statement: Any lab studies that have been ordered have been reviewed, and results considered in the medical decision making process. Course/Dx - Course Course Of Treatment: The pt is a 26 y/o F presenting to the ED with c/o possible adverse side effects to a new medication. Symptoms include erythema over the face, facial itching, dry mouth and increased HR. She denies full-body rash. The pt will be discharged with dx of mild allergic reaction. - Diagnoses Provider Diagnoses: mild allergic reaction Discharge - Discharge Plan Condition: Stable Disposition: HOME Patient Education Materials: General Allergic Reaction (ED) Referrals: Adonis Chapman DO [Primary Care Provider] - 3 Days Additional Instructions: RETURN TO EMERGENCY DEPARTMENT FOR ANY NEW OR WORSENING SYMPTOMS The documentation as recorded by the Dat daniels Stephanie accurately reflects the service I personally performed and the decisions made by Zohra ashley Abdul, MD.
[2017-12-04 02:12] VITALS: BP 131/83
== END 2017-12-04 01:18 | disposition home or self-care (01) ==
LOC: ED 23:55
DX: L27.0 Generalized skin eruption due to drugs and medicaments taken internally (principal); T46.6X5A Adverse effect of antihyperlipidemic and antiarteriosclerotic drugs, initial encounter
CPT/HCPCS: 99282; A9270-GY

== ENCOUNTER 2019-11-10 03:51 | Emergency (ER) | payer OTHER ==
--- OUTSIDE RECORDS SUMMARY | 2019-11-10 04:10 | XMS REPORT | Continuity of Care Document ---
:1990 External Reference #:[id number] Author Name Zamzam Adrian MD Address [address] [place] [address] Problems Active Problems Provider Date Dysfunctional uterine bleeding Abilio Hughes Onset: 05/26/2011 Mixed hyperlipidemia Adonis Chapman D.O. Onset: 11/23/2017 Tension-type headache Adonis Chapman D.O. Onset: 11/23/2017 Hyperlipidemia Zamzam Adrian MD Onset: 09/14/2019 Elevated blood-pressure reading without Zamzam Adrian MD Onset: 09/14/2019 diagnosis of hypertension Social History Type Date Description Comments Sex Unknown Tobacco Use Reviewed: 07/02/15 Denies Cigarette Use Smoking Status Reviewed: 09/14/19 Denies Cigarette Use ETOH Use Occassional Alcohol Tobacco Use Start: Unknown Non Smoker Exercise Does aerobics daily zymba and pilates Type/Frequency Sun Exposure moderate amount of sun exposure Sun Exposure Uses sunscreen Seat Belt/Car Seat always uses seat belt Bike Helmet Always Guns in Home No Smoke Alarms Yes smoke alarm Recent Travel There has not been recent travel abroad Allergies, Adverse Reactions, Alerts Active Allergies Reaction Severity Comments Date Simvastatin Urticaria Moderate 12/04/2017 Inactive Allergies NKDA 05/29/2006 Medications Active Medications SIG Qnty Indications Ordering Provider Date Vitamin B-12 1 daily under the 90tabs Adonis Chapman, 03/12/2018 500mcg tongue. ok to D.O. Tablets Sub subsitute a higher strength b12 based on availability. Centrum Women 1 po daily Unknown 11/22/2017 Tablets Previfem 1 ta b by mouth 3pkts Z30.011 Adonis Chapman, 08/29/2013 every day D.O. 0.25-35mg-mcg Tablets Medications Administered in Office Medication SIG Qnty Indications Ordering Provider Date TB Intradermal Test Ty Dawson M.D. 04/27/2009 Injection Immunizations CPT Code Status Date Vaccine Lot # [id number] Given 07/18/2019 Influenza Virus Vaccine, Quadrivalent, Split, Preservative Free [id number] Given 08/13/2018 Influenza Virus Vaccine, Quadrivalent, Split, [place] Use 36625 Given 08/07/2017 Influenza Virus Vaccine, Quadrivalent, Split, Preservative Free 09837 Given 09/04/2016 Td Immunization [id number] 86041 Given 07/31/2016 Influenza Virus Vaccine, Quadrivalent, Split, Im Use 33638 Given 07/02/2015 Flu, Split Virus 3Yrs 97723 Given 12/10/2012 Hep A, Adult [id number] 75039 Given 06/16/2012 Hep A, Adult [id number] 59571 Given 10/16/2011 Flu, Split Virus 3Yrs [id number] 77558 Given 11/13/2008 Gardasil HPV vaccine [id number] 12391 Given 08/19/2008 Flu, Split Virus 3Yrs [id number] 82991 Given 06/26/2008 Gardasil HPV vaccine 08917 Given 04/25/2008 Menactra Menningitis Vaccine [id number] 72976 Given 04/25/2008 Gardasil HPV vaccine [id number] 92800 Given 05/29/2006 Varicella (Chicken Pox) Immunization [id number] 25383 Given 05/29/2006 Adacel or Boostrix, TDaP [id number] [address] Given 01/29/2004 Td Immunization 81023 Given 03/28/1997 DTP Immunization 58167 Given 02/06/1997 Hep B Immunization, Ped/Adolescent To 11 Yrs 12673 Given 08/23/1996 Hep B Immunization, Ped/Adolescent To 11 Yrs 25039 Given 04/15/1996 Hep B Immunization, Ped/Adolescent To 11 Yrs 45980 Given 04/14/1996 Poliomyelitis Immunization 64925 Given 04/14/1996 MMR Virus Immunization 26038 Given 04/14/1996 DTP Immunization 62389 Given 03/28/1992 Hib 4 Dose, Acthib 93005 Given 03/28/1992 MMR Virus Immunization 75049 Given 03/28/1992 Poliomyelitis Immunization 44822 Given 06/29/1991 DTP Immunization 93184 Given 06/29/1991 Hib 4 Dose, Acthib 58405 Given 04/27/1991 Poliomyelitis Immunization 36708 Given 04/27/1991 DTP Immunization 55368 Given 04/27/1991 Hib 4 Dose, Acthib 92384 Given 02/23/1991 Poliomyelitis Immunization 41633 Given 02/23/1991 DTP Immunization 46319 Given 02/23/1991 Hib 4 Dose, Acthib Vital Signs Date Vital Result Comment 09/14/2019 12:53pm BP Systolic 154 mmHg BP Diastolic 100 mmHg BP Systolic Recheck 138 mmHg BP Diastolic Recheck 100 mmHg Height 59.75 inches 4'11.75" Weight 140.00 lb BMI (Body Mass Index) 27.6 kg/m2 Last Menstrual Period [id number] 09/13/2018 9:11am BP Systolic 138 mmHg BP Diastolic 94 mmHg BP Systolic Recheck 132 mmHg BP Diastolic Recheck 102 mmHg Height 60 inches 5'0" Weight 141.00 lb BMI (Body Mass Index) 27.5 kg/m2 Results Test Acquired Date Facility Test Result H/L Range Note Laboratory test 09/14/2019 [facility] Magnesium <pending> finding [phone] Vitamin B12 <pending> Laboratory test 09/14/2019 [facility] TSH (Thyroid Stim <pending> finding [phone] Horm) Procedures Description No Information Available Medical Devices Description No Information Available Encounters Type Date Location Provider Dx Diagnosis Office Visit 09/14/2019 Main Office Zamzam Adrian MD Z00.00 Encntr for general 12:55p adult medical exam w/o abnormal findings R03.0 Elevated blood-pressure reading, w/o diagnosis of htn E78.5 Hyperlipidemia, unspecified Z68.27 Body mass index (BMI) 27.0-27.9, adult Assessments Date Code Description Provider 09/14/2019 Z00.00 Encounter for general adult medical examination Zamzam Adrian MD without abno 09/14/2019 R03.0 Elevated blood-pressure reading, without Zamzam Adrian MD diagnosis of hypertension 09/14/2019 E78.5 Hyperlipidemia, unspecified Zamzam Adrian MD 09/14/2019 Z68.27 Body mass index (BMI) 27.0-27.9, adult Zamzam Adrian MD Plan of Treatment Future Appointment(s):09/17/2020 2:00 pm - Zamzam Adrian MD at Main [id number] 8:30 am - Zamzam Adrian MD at Main Scxiqx2809/14/2019 - Zamzam Adrian MDZ00.00 Encounter for general adult medical examination without abnoR03.0 Elevated blood-pressure reading, without diagnosis of hypertensionFollow up:6 hpualK99.5 Hyperlipidemia, lcllegegfwzK13.27 Body mass index (BMI) 27.0-27.9, adult Functional Status Description No Information Available Mental Status Description No Information Available Referrals Description No Information Available
--- OUTSIDE RECORDS SUMMARY | 2019-11-10 04:10 | XMS REPORT | Continuity of Care Document ---
:1990 External Reference #:[id number] Author Name Zamzam Adrian MD Address [address] [place] [address] Problems Active Problems Provider Date Dysfunctional uterine bleeding Abilio Hughes Onset: 05/26/2011 Mixed hyperlipidemia Adonis Chapman D.O. Onset: 11/23/2017 Tension-type headache Adonis Chapman D.O. Onset: 11/23/2017 Elevated blood-pressure reading without Zamzam Adrian MD Onset: 09/14/2019 diagnosis of hypertension Hyperlipidemia Zamzam Adrian MD Onset: 09/14/2019 Social History Type Date Description Comments Sex Unknown Tobacco Use Reviewed: 07/02/15 Denies Cigarette Use Smoking Status Reviewed: 10/27/19 Denies Cigarette Use ETOH Use Occassional Alcohol [...] Medications Active Medications SIG Qnty Indications Ordering Date Provider Hydrochlorothiazide one tablet every 90tabs I10 Zamzam Adrian 10/27/2019 25mg Tablets day by mouth MD Roma Vitamin B-12 1 daily under 90tabs Ari, 03/12/2018 500mcg Tablets Sub the tongue. ok Eldon Lamb to subsitute a higher strength b12 based on availability. Centrum Women 1 po daily Unknown 11/22/2017 Tablets Previfem 1 ta b by mouth 3pkts Z30.011 [facility], 08/29/2013 0.25-35mg-mcg Tablets every day Eldon Lamb Medications Administered in Office Medication SIG Qnty Indications Ordering Provider Date TB Intradermal Test Ty Dawson M.D. 04/27/2009 Injection Immunizations CPT Code Status Date Vaccine Lot # [id number] Given 07/18/2019 Influenza Virus Vaccine, Quadrivalent, Split, Preservative Free 79858 Given 08/13/2018 Influenza Virus Vaccine, Quadrivalent, Split, [place] Use 83888 Given 08/07/2017 Influenza Virus Vaccine, Quadrivalent, Split, Preservative Free 36046 Given 09/04/2016 Td Immunization [id number] 11347 Given 07/31/2016 Influenza Virus Vaccine, Quadrivalent, Split, Im Use 08121 Given 07/02/2015 Flu, Split Virus 3Yrs 09501 Given 12/10/2012 Hep A, Adult [id number] 38487 Given 06/16/2012 Hep A, Adult [id number] 60874 Given 10/16/2011 Flu, Split Virus 3Yrs [id number] 73673 Given 11/13/2008 Gardasil HPV vaccine [id number] 50467 Given 08/19/2008 Flu, Split Virus 3Yrs [id number] 70354 Given 06/26/2008 Gardasil HPV vaccine 27716 Given 04/25/2008 Menactra Menningitis Vaccine [id number] 81348 Given 04/25/2008 Gardasil HPV vaccine [id number] 29719 Given 05/29/2006 Varicella (Chicken Pox) Immunization [id number] 89263 Given 05/29/2006 Adacel or Boostrix, TDaP [id number] 36974 Given 01/29/2004 Td Immunization 10705 Given 03/28/1997 DTP Immunization 19273 Given 02/06/1997 Hep B Immunization, Ped/Adolescent To 11 Yrs 96376 Given 08/23/1996 Hep B Immunization, Ped/Adolescent To 11 Yrs 66520 Given 04/15/1996 Hep B Immunization, Ped/Adolescent To 11 Yrs 55355 Given 04/14/1996 Poliomyelitis Immunization 23022 Given 04/14/1996 MMR Virus Immunization 87749 Given 04/14/1996 DTP Immunization 78714 Given 03/28/1992 Hib 4 Dose, Acthib 20149 Given 03/28/1992 MMR Virus Immunization 93573 Given 03/28/1992 Poliomyelitis Immunization 36769 Given 06/29/1991 DTP Immunization 47950 Given 06/29/1991 Hib 4 Dose, Acthib 83974 Given 04/27/1991 Poliomyelitis Immunization 59490 Given 04/27/1991 DTP Immunization 96499 Given 04/27/1991 Hib 4 Dose, Acthib 11242 Given 02/23/1991 Poliomyelitis Immunization 89164 Given 02/23/1991 DTP Immunization 06690 Given 02/23/1991 Hib 4 Dose, Acthib Vital Signs Date Vital Result Comment 10/27/2019 8:40am BP Systolic 140 mmHg R arm sitting, RN BP Diastolic 100 mmHg R arm sitting, RN BP Systolic Recheck 133 mmHg R arm sitting recheck BP Diastolic Recheck 96 mmHg R arm sitting recheck Heart Rate 96 /min Height 60 inches 5'0" Weight 144.00 lb BMI (Body Mass Index) 28.1 kg/m2 09/14/2019 12:53pm BP Systolic 154 mmHg BP Diastolic 100 mmHg BP Systolic Recheck 138 mmHg BP Diastolic Recheck 100 mmHg Height 59.75 inches 4'11.75" Weight 140.00 lb BMI (Body Mass Index) 27.6 kg/m2 Last Menstrual Period [phone] Results Test Acquired Date Facility Test Result H/L Range Note Laboratory test 09/14/2019 [facility] Cytology SEE RESULT 1 finding [phone] BELOW Lipid Profile 09/14/2019 [facility] Triglycerides 305 mg/dL 2, 3 (Trig/Chol/HDL) [phone] Cholesterol 296 mg/dL 4 HDL Cholesterol 81.8 mg/dL 5 LDL Cholesterol 153 mg/dL 6 Laboratory test 09/14/2019 [facility] Magnesium 2.3 mg/dL Normal 1.9- 2.7 7 finding [phone] Vitamin B12 760 pg/mL Normal 180-914 8 Comp Metabolic Panel 09/14/2019 [facility] Sodium 137 mmol/L Normal 135-145 [phone] Potassium 4.3 mmol/L Normal 3.5-5.0 Chloride 102 mmol/L Normal 101-111 Co2 Carbon Dioxide 26 mmol/L Normal 22-32 Anion Gap 9 mmol/L Normal 2-11 Glucose 86 mg/dL Normal 70-100 Blood Urea Nitrogen 5 mg/dL Low 6-24 Creatinine 0.56 mg/dL Normal 0.51-0.95 BUN/Creatinine Ratio 8.9 Normal 8-20 Calcium 9.7 mg/dL Normal 8.6-10.3 Total Protein 7.4 g/dL Normal 6.4-8.9 Albumin 4.7 g/dL Normal 3.2-5.2 Globulin 2.7 g/dL Normal 2-4 Albumin/Globulin Ratio 1.7 Normal 1-3 Total Bilirubin 0.40 mg/dL Normal 0.2-1.0 Alkaline Phosphatase 65 U/L Normal 34-104 Alt 96 U/L High 7-52 Ast 47 U/L High 13-39 Egfr Non- 128.9 >60 Egfr 156.0 >60 9 Laboratory test 09/14/2019 [facility] TSH (Thyroid 2.80 Normal 0.34- 5.60 10 finding [phone] Stim Horm) mcIU/mL 1 SEE RESULT BELOW Name: KINGA MATHEW : [address]: Zamzam Adrian MD Acct: [id number] Unit: [id number] AGE: 28 Location: [facility] Re09/14/19 SEX: F Status: REG REF SPEC: [id number] CHASIDY: 09/14/19-[address] [facility] [address]: Zamzam Adrian MD REQ: [id number] RECD: 09/14/197981 STATUS: SOUT _ ORDERED: TP IMAGE ANALYS COMMENTS: [id number] FINAL DIAGNOSIS Negative for Intraepithelial lesion or Malignancy SPECIMEN(S) RECEIVED A. Ectocervical/Endocervical CYTOLOGY ADEQUACY Specimen Adequacy: Satisfactory of evaluation Transformation zone component identified CYTOLOGY PATIENT INFORMATION Patient Information: HPV: Thin Layer Pap Test w/reflex to high risk HPV RNA testing when ASCUS Actual Specimen Date: 09/14/19 Last Menstrual Date: 08/25/19 Date of Last Specimen: 09/04/16 ?: N Post Menopausal?: N Hysterectomy?: N Previous Abnormal Pap Smears?:N Signed by and Reported on: Dave AILIN Ramirez (ASCP) 1300 This Pap test was evaluated with the assistance of the [employer] System. Due to cytologic findings at the tong carrier microscope, comprehensive manual rescreening by a Manager Investigations may be required. The Pap Smear is [...] be obtained and evaluated every 1-3 years. CONTINUED ON NEXT PAGE DEPARTMENT OF PATHOLOGY, [address] [place] [address] Bennie Davila M.D. Director [facility] # [id number] 2 PT IS NOT FASTING, SAID IS AWARE 3 Desirable: <150 Borderline High: 150-199 High: 200-499 Very High: >500 4 Desirable: <200 Borderline High: 200-239 High: >239 5 Low: <40 Desirable: 40-60 High: >60 6 Desirable: <100 Near Optimal: 100-129 Borderline High: 130-159 High: 160-189 Very High: >189 7 PT IS NOT FASTING, SAID IS AWARE 8 Normal Range 180 to 914 Indeterminate Range 145 to 180 Deficient Range <145 9 Because ethnic data is not always readily [...] 15-29 5 Kidney failure <15 (or dialysis) 10 PT IS NOT FASTING, SAID DR IS AWARE Procedures Description No Information Available Medical Devices Description No Information Available Encounters Type Date Location Provider Dx Diagnosis Office Visit 10/27/2019 Main Office Zamzam Adrian MD I10 Essential ( primary) 8:30a hypertension N92.0 Excessive and frequent menstruation with regular cycle E78.5 Hyperlipidemia, unspecified R94.5 Abnormal results of liver function studies Z68.28 Body mass index (BMI) 28.0-28.9, adult Office Visit 09/14/2019 12:55p Main Office Zamzam Adrian, Z00.00 Encntr for general MD adult medical exam w/o abnormal findings R03.0 Elevated blood-pressure reading, w/o diagnosis of htn E78.5 Hyperlipidemia, unspecified E66.3 Overweight Z12.4 Encounter for screening for malignant neoplasm of cervix Z68.27 Body mass index (BMI) 27.0-27.9, adult Assessments Date Code Description Provider 10/27/2019 I10 Essential (primary) hypertension Zamzam Adrian MD 10/27/2019 N92.0 Excessive and frequent menstruation with Zamzam Adrian MD regular cycle 10/27/2019 E78.5 Hyperlipidemia, unspecified Zamzam Adrian MD 10/27/2019 R94.5 Abnormal results of liver function studies Zamzam Adrian MD 10/27/2019 Z68.28 Body mass index (BMI) 28.0-28.9, adult Zamzam Adrian MD 09/14/2019 Z00.00 Encounter for general adult medical examination Zamzam Adrian MD without abno 09/14/2019 R03.0 Elevated blood-pressure reading, without Zamzam Adrian MD diagnosis of hypertension 09/14/2019 E78.5 Hyperlipidemia, unspecified Zamzam Adrian MD 09/14/2019 E66.3 Overweight Zamzam Adrian MD 09/14/2019 Z12.4 Encounter for screening for malignant neoplasm Zamzam Adrian MD of cervix 09/14/2019 Z68.27 Body mass index (BMI) 27.0-27.9, adult Zamzam Adrian MD Plan of Treatment Future Appointment(s):11/28/2019 8:30 am - Zamzam Adrian MD at Main [id number] 2:00 pm - Zamzam Adrian MD at Main [id number]/27/2019 - Zamzam Adrian MDI10 Essential (primary) hypertensionNew Medication: Hydrochlorothiazide 25 mg - one tablet every day by mouthFollow up:will start with HCTZ 25mg. f/u in 4 weeks. and as needed.N92.0 Excessive and frequent menstruation with regular cycleFollow up:will trial off OCP for now and see how she doesE78.5 Hyperlipidemia, unspecifiedFollow up:consider whole food plant based diet low in fat and salt and rich in fruits and vegetables and beans. Reduce or eliminate meat, fish, chicken, milk products and eggs. Avoid all processed foods and refined grains and sugar. See nutritionfacts. org, forks over knives, straight up food. Renny Washington has a good cookbook as well.R94.5 Abnormal results of liver function studiesComments:they go up and down, will continue to monitor, likely due to overweight.Z68.28 Body mass index (BMI) 28.0- 28.9, adult Functional Status Description No Information Available Mental Status Description No Information Available Referrals Description No Information Available
--- NOTE | 2019-11-10 05:14 | ED ---
Palpitations / Dysrhythmia - HPI Summary HPI Summary: Pt is a 28 y/o F presenting to the ED with a chief complaint of palpitations. She states shes been on Hydrochlorothiazide for almost 1 week, and her resting HR has increasingly gotten higher. Last night, she had a hard time falling asleep because of the palpitations, but she thought she was having a panic attack. The rapid HR woke her up tonight, and she noticed it was around 115. She denies SOB, CP, abd pain, N/V/D, decreased appetite, headache, edema, or myalgia in her legs. - History of Current Complaint Chief Complaint: EDDysrhythmPalp Time Seen by Provider: 11/10/19 05:06 Hx Obtained From: Patient Onset/Duration: Gradual Onset, Lasting Days, Still Present Timing: Constant Severity Initially: Mild Severity Currently: Mild Character: Fast Aggravating: Nothing Alleviating: Nothing Associated Signs & Symptoms: Negative - Allergy/Home Medications Allergies/Adverse Reactions: Allergies Allergy/AdvReac Type Severity Reaction Status Date / Time simvastatin Allergy Tingling/RED Verified 11/10/19 03:57 ITCHY FACE PMH/Surg Hx/FS Hx/Imm Hx Previously Healthy: Yes Endocrine/Hematology History: Denies: Hx Anticoagulant Therapy, Hx Diabetes, Hx Thyroid Disease Cardiovascular History: Denies: Hx Congestive Heart Failure, Hx Deep Vein Thrombosis, Hx Hypertension , Hx Myocardial Infarction, Hx Pacemaker/ICD Respiratory History: Denies: Hx Asthma, Hx Chronic Obstructive Pulmonary Disease (COPD), Hx Lung Cancer, Hx Pneumonia, Hx Pulmonary Embolism GI History: Denies: Hx Gall Bladder Disease, Hx Gastrointestinal Bleed, Hx Ulcer, Hx Urosepsis History: Denies: Hx Kidney Stones, Hx Renal Disease Sensory History: Denies: Hx Hearing Aid Neurological History: Denies: Hx Dementia, Hx Migraine, Hx Seizures, Hx Transient Ischemic Attacks (TIA) Psychiatric History: Denies: Hx Anxiety, Hx Depression, Hx Panic Disorder, Hx Schizophrenia, Hx Bipolar Disorder - Surgical History Surgery Procedure, Year, and Place: WISDOM TEETH Infectious Disease History: No Infectious Disease History: Denies: History Other Infectious Disease, Traveled Outside the [place] in Last 30 Days - Family History Known Family History: Positive: Cardiac Disease, Hypertension, Diabetes - Social History Alcohol Use: Rare Hx Substance Use: No Substance Use Type: Reports: None Hx Tobacco Use: No Smoking Status (MU): Never Smoked Tobacco Review of Systems Negative: Other - dec. appetite Positive: Palpitations. Negative: Chest Pain Negative: Shortness Of Breath Negative: Abdominal Pain, Vomiting, Diarrhea, Nausea Negative: Myalgia, Edema Negative: Headache All Other Systems Reviewed And Are Negative: Yes Physical Exam - Summary Physical Exam Summary: Appearance: Well-appearing, Well-nourished, lying in bed comfortably Skin: Warm, dry, no obvious rash Eyes: sclera anicteric, no conjunctival pallor ENT: mucous membranes moist, pharynx appears normal Neck: Supple, nontender Respiratory: Clear to auscultation, no signs of respiratory distress Cardiovascular: Mild tachycardia. No murmurs. Normal distal pulses in tibial and radial bilaterally. Abdomen: Soft, nontender, normal active bowel sounds present Musculoskeletal: Normal, Strength/ROM Intact Neurological: A&Ox3, awake and alert, mentation is normal, speech is fluent and appropriate Psychiatric: affect is normal, does not appear anxious or depressed Triage Information Reviewed: Yes Vital Signs On Initial Exam: Initial Vitals Temp Pulse Resp BP Pulse Ox 98.6 F 118 16 134/109 99 11/10/19 03:52 11/10/19 03:52 11/10/19 03:52 11/10/19 03:52 11/10/19 03:52 Vital Signs Reviewed: Yes Procedures - Sedation Patient Received Moderate/Deep Sedation with Procedure: No Diagnostics - Vital Signs Vital Signs Temp Pulse Resp BP Pulse Ox 11/10/19 03:52 98.6 F 118 16 134/109 99 - Laboratory Result Diagrams: 11/10/19 05:46 11/10/19 05:46 Lab Statement: Any lab studies that have been ordered have been reviewed, and results considered in the medical decision making process. - EKG 0400 Cardiac Rate: Tachycardia - 109 EKG Rhythm: Sinus Tachycardia ST Segment: Normal Ectopy: None Summary of EKG Findings: EKG at 0400 shows sinus tachycardia at 109 BPM, P waves , QRS complex, and T waves are within normal limits, T waves and intervals are normal, no ischemic changes. This is a normal EKG. ED physician has reviewed and interpreted this EKG. Course/Dx - Course Course Of Treatment: Pt is a 28 y/o F presenting to the ED with a chief complaint of palpitations. She states shes been on Hydrochlorothiazide for almost 1 week, and her resting HR has increasingly gotten higher. The rapid HR woke her up tonight, and she noticed it was around 115. She denies SOB, CP, abd pain, N/V/D, decreased appetite, headache, edema, or myalgia in her legs. Exam shows mild tachycardia. EKG at 0400 shows sinus tachycardia at 109 BPM, P waves , QRS complex, and T waves are within normal limits, T waves and intervals are normal, no ischemic changes. This is a normal EKG. ED physician has reviewed and interpreted this EKG. Pt's lab results WNL aside from Potassium 3.2. She will be d/c'ed with dx of tachycardia and hypokalemia. She is stable and agreeable with this plan. - Diagnoses Provider Diagnoses: Tachycardia, Hypokalemia Discharge ED - Sign-Out/Discharge Documenting (check all that apply): Patient Departure - Discharge Plan Condition: Good Disposition: HOME Patient Education Materials: Hypokalemia (ED), Tachycardia (ED) Referrals: Adonis Chapman DO [Primary Care Provider] - 1 Week Additional Instructions: Your potassium level was mildly low, likely due to the HCTZ, but not low enough to cause rapid HR or other symptoms. You can treat this by increasing potassium in your diet. We did not find any problems in the blood work that would cause the rapid HR. If it persists, contact your regular doctor. - Billing Disposition and Condition Condition: GOOD Disposition: Home - Attestation Statements Document Initiated by Ana Maria: Yes Documenting Scribe: Anne Hay Provider For Whom Ana Maria is Documenting (Include Credential): Emile Ramon MD. Scribe Attestation: Anne Quezada, scribed for Emile Ramon MD. on 11/10/19 at 2044. Scribe Documentation Reviewed: Yes Provider Attestation: The documentation as recorded by the Anne daniels accurately reflects the service I personally performed and the decisions made by me, Emile Ramon MD. Status of Scribe Document: Viewed
[2019-11-10 05:53] LABS: ABS Eosinophils 0.2 10^3/ul (0-0.6); ABS Lymphocytes 1.9 10^3/ul (1.0-4.8); ABS Monocytes 0.7 10^3/ul (0-0.8); ABS Neutrophils 5.7 10^3/ul (1.5-7.7); Hematocrit 43 % (35-47); Hemoglobin 15.3 g/dL (12.0-16.0); Lymphocyte % 22.1 %; Mean Corpuscular HGB Conc 35 g/dL (31-36); Mean Corpuscular Hemoglobin 30 pg (27-31); Mean Corpuscular Volume 85 fL (80-97); Mean Platelet Volume 6.9 fL (7.4-10.4); Nucleated Red Blood Cells % 0.1; Platelet Count 294 10^3/uL (150-450); Red Cell Distribution Width 13 % (10-15); White Blood Count 8.5 10^3/uL (3.5-10.8)
[2019-11-10 06:10] LABS: ALT 188 U/L (7-52); AST 88 U/L (13-39); Albumin 4.5 g/dL (3.2-5.2); Albumin/Globulin Ratio 1.6 (1-3); Alkaline Phosphatase 65 U/L (34-104); Anion Gap 10 mmol/L (2-11); BUN/Creatinine Ratio 12.9 (8-20); Blood Urea Nitrogen 8 mg/dL (6-24); CO2 Carbon Dioxide 28 mmol/L (22-32); Calcium 9.7 mg/dL (8.6-10.3); Chloride 98 mmol/L (101-111); EGFR African American 138.7 (>60); EGFR Non-African American 114.6 (>60); Globulin 2.9 g/dL (2-4); Glucose 114 mg/dL (70-100); Potassium 3.2 mmol/L (3.5-5.0); Sodium 136 mmol/L (135-145); Total Protein 7.4 g/dL (6.4-8.9)
[2019-11-10 06:17] LABS: HCG Pregnancy < 0.60 mIU/mL
[2019-11-10 06:46] VITALS: BP 151/100
[2019-11-10 06:49] LABS: TSH (Thyroid Stimulating Horm) 2.78 mcIU/mL (0.34-5.60)
== END 2019-11-10 06:45 | disposition home or self-care (01) ==
LOC: ED 03:51
DX: R00.0 Tachycardia, unspecified (principal); E87.6 Hypokalemia; Z88.8 Allergy status to other drugs, medicaments and biological substances
CPT/HCPCS: 36415; 80053; 84443; 84702; 85025; 93005; 99283